=== PATIENT | female | born 2000 | race African-American/Black ===

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

== ENCOUNTER 2020-11-27 12:20 | Emergency (ER) | payer MEDICAID, SELFPAY ==
[2019-12-28 11:55] VITALS: BMI 30.9
[2020-11-27 12:21] VITALS: BP 163/106; PULSE 138; RESP 17; TEMP 37.4; O2SAT 100; BMI 22.1
--- NOTE | 2020-11-27 12:47 | ED.DCSUM_ITS ---
History of Present Illness Chief Complaint: Suicidal Informant: Patient Limited: - - Emotionally distraught Onset: Month(s) Context: Sudden Onset Conflict: Family Timing: Continuous, Waxes and wanes Current Severity: Severe Maximum Severity: Severe Worsened by: Situational factors Associated Symptoms: Depressed, Change in Eating, Change in sleeping, Decreased Interest, Guilt, Decreased Concentration, Suicidal Thoughts, Easily distracted. Negative for: Grandiosity, Flight of Ideas, Pressured Speech, Agitated, Paranoia, Visual Hallucinations, Auditory Hallucinations Specific plan (suicidal thought): None Narrative: Patient is a 20-year-old female who presents because of depression, anxiety and suicidal thoughts.In the past for depression. Most recent was 2016. She overdosed at that time. Has been hospitalized 3 times as a child. She presently lives with her sister and brother. She is not with anyone. She has no children. Patient became depressed after the of her child. She reports she was sleeping with the child the child stopped breathing while asleep. This occurred in March. Patient reports significant weight loss. She states she cannot quantitate the amount of weight. She has gone from wearing large clothing to extra small. She denies any constitutional symptoms. She denies headache, visual, ocular auditory symptoms. She denies cardiac respiratory symptoms. She denies GI or symptoms. She denies neurologic symptoms. Prior similar symptoms: Yes Recent Illness/Hospitalization: No - Past Medical History (1) Depression with anxiety Status: Acute Past Medical History - Allergies and Home Meds Allergies/Adverse Reactions: Allergies No Known Allergies Allergy (Verified 11/27/20 12:24) Primary Care Physician: Care Physician,No Primary [Primary Care Provider] - Prior records reviewed: Yes Surgical History: noncontributory Lives: With Family Smoking Status: Current every day smoker Alcohol: None Drugs: None Review of Systems General: Reports: Malaise, Weight loss. Denies: Chills, Fever, Subjective, Sweats Eyes: Denies: Visual changes - bilaterally ENT: Denies: Rhinorrhea, Sore throat Cardiovascular: Denies: Chest pain, Palpitations Respiratory: Denies: Dyspnea, Cough, Dyspnea on exertion Gastrointestinal: Denies: Abdominal pain, Nausea, Vomiting, Diarrhea, Melena, Hematochezia Genitourinary: Denies: Dysuria, Hematuria, Frequency Musculoskeletal: Denies: Myalgias, Arthralgias, Neck pain, Back pain, Extremity Pain Skin: Denies: Rash, Wounds Neurological: Denies: Headache, Weakness, Numbness Psych: Reports: Depression, Anxiety, Suicidal thoughts. Denies: Suicidal ideations Hematologic: Denies: Easy bruising, Easy bleeding Physical Exam Vital Signs/Narrative: Vital Signs Temp Pulse Resp BP Pulse Ox 11/27/20 12:21 99.3 F H 138 H 17 163/106 H 100 Inital Vital Signs reviewed: Yes General: Well nourished, Well developed Head: Normocephalic, Atraumatic Eyes: Perrl, EOMI. Negative for: Pale conjunctiva, Scleral icterus ENT: Moist mucous membranes, No rhinorrhea Neck: Supple, Nontender Cardiovascular: Regular rate, Regular rhythm, No murmurs Respiratory: No distress, CTA bilaterally, Chest nontender Abdomen: Soft, Nontender, Nondistended, Normal bowel sounds Back: Nontender, Normal Inspection Extremities: Nontender, No Edema Skin: Normal color, No rash, No Trauma. Negative for: Cyanosis, Diaphoresis, Jaundice Neurological: Alert, Oriented x3, Cranial nerves II-XII grossly intact, Normal Strength, Normal Sensation Psych: Normal Speech Pattern, Logical sequential goal directed thoughts, Normal Appearance, Depressed, Labile, Poverty of Speech, Suicidal thoughts. Negative for: No suicidal or homicidal ideation, Normal Stable Appropriate Affect, Homicidal thoughts, Hallucinations, Delusions, Paranoid Ideation Diagnostic/Tx/Re-eval Restraints applied: No Patient is depressed and anxious. She does not have a specific plan. Case management was informed that it is my opinion that she could go home and I would be willing to initiate antidepressant medication if the counseling center would be able to see her within the next week or 2. The licensed nursing assistant for the crisis center is presently talking with her on the phone. Since patient feels anxious and her heart is racing will treat with Ativan. I received a call from the licensed nursing assistant regarding patient. Plan is discharged with safety plan. She has an appointment to see counselor December 03 and a prescription for Zoloft. ED Disposition - Plan for ED Patient: Disposition: Home or Assisted Living Diagnosis: Depression, major, in partial remission Instructions: ED Depression Prescriptions: Sertraline HCl [Zoloft] 25 mg PO QHS #30 tab Transmission Status: Pending to [facility] Referrals: Care Physician,No Primary [Primary Care Provider] - Counseling,Center [GROUP OF PHYSICIANS] - Keep Jada appointment Additional Instructions: The antidepressant you were prescribed takes 2 to 3 weeks until you may see an effect. Dose may need to be increased by your counselor. Keep your appointment for December 03.
[2020-11-27] MEDS: LORazepam 0.5 MG Tablet PO (12:56)
[2020-11-27 14:15] VITALS: PULSE 78; RESP 16; O2SAT 99
== END 2020-11-27 14:16 | disposition home or self-care (01) ==
PROVIDERS: Emergency Provider Emergency Medicine
DX: F32.4 Major depressive disorder, single episode, in partial remission (principal); F17.200 Nicotine dependence, unspecified, uncomplicated
CPT/HCPCS: 99284

== ENCOUNTER 2022-09-24 15:01 | Observation (INO) | payer MEDICAID, SELFPAY ==
[2022-09-24 15:02] VITALS: BP 115/80; PULSE 125; RESP 16; TEMP 36.2; O2SAT 99; BMI 23.3
--- NOTE | 2022-09-24 15:34 | EDS_ITS ---
HPI History of Present Illness Chief Complaint: Substance Abuse Informant: patient Onset/Context/Timing Onset: Yesterday Context: Gradual Onset Timing: Continuous Worsened by: Nothing Relieved by: Nothing Associated Symptoms Associated Symptoms: Positive for palpatations and no; Negative for vomiting*, diarrhea*, fever*, rash*, seizure, tremor, change in mental status, trauma, suicidal ideation or homicidal ideation Narrative Narrative: Patient presents requesting detox from alcohol. Patient states she also smokes marijuana daily. Patient states she was instructed by her earth science technical officer to come to the hospital for detox. Patient states she drinks 1 bottle of wine per day. Patient states she has been drinking for a few years. Patient states her last drink was yesterday. Patient states she has never been through detox in the past. Patient admits to occasional palpitations. Patient denies any nausea or vomiting. Patient denies any diarrhea. Patient denies any tremor or seizures. Patient denies any suicidal or homicidal ideations. Patient denies any chance of . PFSH PFS Medical History no medical history no medical history Allergy/AdvReac Type Severity Reaction Status Date / Time No Known Allergies Allergy Verified 09/24/22 15:05 Surgical History no surgical history no surgical history Social History (Updated 09/24/22 @ 15:[address] Roman Miranda, DO) Smoking Status: Current every day smoker tobacco type: e-cigarettes alcohol intake: current alcohol intake frequency: 3 or more drinks per day Alcohol type: wine substance use type: marijuana ROS ROS ED Constitutional Constitutional ED: Denies chills or fever(s) Eyes Eyes: Denies blurry vision or change in vision ENT ENT ED: Denies rhinorrhea or sore throat Cardiovascular Cardiovascular: Reports palpitations; Denies chest pain Respiratory/Chest Respiratory/Chest: Denies cough or dyspnea Gastrointestinal Gastrointestinal: Denies nausea or vomiting Genitourinary Genitourinary ED: Denies dysuria or hematuria Musculoskeletal Musculoskeletal: Denies back pain or neck pain Integumentary Denies abscess or rash Neurologic Neurologic: Denies headache(s) or weakness Allergic/Immunologic Allergic/Immunologic ED: Denies mouth swelling or urticaria EXAM Physical Exam Const Vital Signs: 09/24/22 15:02 Temperature 97.1 F L Temperature Source Temporal Pulse Rate 125 H Respiratory Rate 16 Blood Pressure 115/80 Blood Pressure Mean 91 Pulse Ox 99 Oxygen Delivery Method Room Air Positive well nourished and well developed General Appearance ED: well developed and NAD HEENT Reports moist mucous membranes Neck supple and no JVD Resp normal respiratory effort and clear to auscultation bilaterally Cardio regular rate and regular rhythm GI normal to inspection, nondistended, normoactive bowel sounds and non-tender Palpation: soft Extremity normal to inspection General Extremety ED: Negative for edema or tenderness General Extremity: Negative for edema Neuro oriented x3, CN's II-XII intact bilaterally and no sensory deficits noted Sensorium / Orientation: alert Motor Exam: strength 5/5 throughout Psych mental status grossly normal Skin no rashes or lesions noted MDM MDM MDM Narrative Medical decision making narrative: Basic labs were obtained. Case was discussed with the hospitalist. He will admit patient to his service. Patient understood and was agreeable with the plan. All questions were answered. Lab Data Attestation: I reviewed the patient's lab results. Labs: Laboratory Results - last 24 hr 09/24/22 09/24/22 16:00 16:00 WBC 5.9 RBC 4.08 L Hgb 12.8 Hct 37.8 MCV 92.6 MCH 31.4 MCHC 33.9 RDW Std Deviation 42.0 RDW Coeff of James 12.3 Plt Count 264 MPV 9.5 Immature Gran % (Auto) 0.000 Neut % (Auto) 54.4 Lymph % (Auto) 35.2 Snyder % (Auto) 7.6 Eos % (Auto) 2.0 Baso % (Auto) 0.8 Absolute Neuts (auto) 3.2 Absolute Lymphs (auto) 2.09 Nucleated RBC % 0 Sodium 140 Potassium 3.7 Chloride 104 Carbon Dioxide 30.0 Anion Gap 6 BUN 15 Creatinine 0.75 Estim Creat Clear Calc 101.60 Est GFR (MDRD) Af Amer 124 Est GFR (MDRD) Non-Af 102 BUN/Creatinine Ratio 20.0 Glucose 90 Calcium 8.6 Total Bilirubin 0.30 AST 12 L ALT 12 L Alkaline Phosphatase 27 L Total Protein 8.1 Albumin 3.5 Globulin 4.6 H Albumin/Globulin Ratio 0.8 L Discharge Plan Triage Chief Complaint: Substance Abuse ED Provider: Roman Miranda Dx/Rx/DC Orders Clinical Impression: Alcohol withdrawal, Substance abuse Primary Care Provider: Care Physician,No Primary Disposition Disposition: Acute Care [facility]
--- NOTE | 2022-09-24 15:58 | NURSING ---
DR BELTRAN FOR DR MUSE
--- NOTE | 2022-09-24 16:00 | CM.ED ---
ALDEN Note Referral Reason: [facility] Referral Source: Case Find SW met with patient to discuss the RAMP program. Patient reports they are detoxing from alcohol. Patient reports that she does not know the amount of alcohol she has been using but it's alot. Patient told triage that [facility] Patient reports that her booking police officer advised her to come to the ED for detox. Patient is not linked with outpatient AOD provider. Patient was advised that the RAMP program includes no outside food or visitors, no phone access and all personal items are secured. ALDEN called Treatment Navigator and updated her regarding patient?s admission to [facility]. Plan: JOLIE VU
--- NOTE | 2022-09-24 16:07 | NURSING ---
MED SURG BORISS ALCOHOL WITHDRAWAL, SUBSTANCE ABUSE
[2022-09-24 16:18] LABS: Absolute Lymphocyte Count 2.09 X10^3/uL (0.83-4.51); Absolute Neutrophil Count 3.2 X10^3/uL (2.0-7.7); Basophil# 0.05 X10^3/uL; Basophil% 0.8 % (0-1); Eosinophil# 0.12 X10^3/uL; Hematocrit 37.8 % (37-47); Hemoglobin 12.8 g/dL (12.0-15.0); Lymphocyte # 2.09 X10^3/ul (0.83-4.51); Lymphocyte % 35.2 % (19-41); Mean Corp Hgb Conc 33.9 g/dL (32-36); Mean Corpuscular Hgb 31.4 pg (27.0-32.0); Mean Corpuscular Volume 92.6 fL (81-99); Mean Platelet Vol. 9.5 fl (6.2-12.0); Monocyte# 0.45 X10^3/uL; Monocyte% 7.6 % (0-10); NRBC Flagged by Analyzer 0 % (0-5); Neutrophil # 3.23 X10^3/uL (2.7-7.7); Neutrophil % 54.4 % (47-70); Platelet Count 264 K/mm3 (150-450); RBC Distribution Width CV 12.3 % (11.6-14.6); Red Blood Count 4.08 M/mm3 (4.2-5.4); White Blood Count 5.9 K/mm3 (4.4-11.0)
[2022-09-24 16:26] LABS: ALB/GLOB Ratio 0.8 RATIO (0.9-2.4); AST(SGOT) 12 U/L (15-37); Alanine Aminotransfer ALT/SGPT 12 U/L (13-56); Albumin, Serum 3.5 g/dL (3.2-5.0); Alkaline Phosphatase 27 U/L (45-117); Anion Gap 6 (5-15); BUN 15 mg/dL (7-18); Calcium,Total 8.6 mg/dL (8.5-10.1); Chloride 104 mmol/L (98-107); Creatinine, Serum 0.75 mg/dL (0.55-1.02); EST Glomerular Filtration Rate 102 mL/min (>60); Est Glom Filt Rate - Afr Amer 124 mL/min (>60); Globulin 4.6 g/dL (2.2-4.2); Glucose 90 mg/dL (74-106); Potassium 3.7 mmol/L (3.5-5.1); Protein, Total 8.1 g/dL (6.4-8.2); Sodium Level 140 mmol/L (136-145)
[2022-09-24 16:41] LABS: Internal QC Validated? YES +Cl - CLEAR BKGD; Pregnancy, Serum, hCG Quali. NEGATIVE Negative
[2022-09-24 16:42] LABS: Alcohol, Blood (Medical)-Serum < 3.0 mg/dL
[2022-09-24 16:43] VITALS: BP 120/76; PULSE 99; RESP 16; TEMP 36.2; O2SAT 99
[2022-09-24 17:28] VITALS: BMI 22.8
--- NOTE | 2022-09-24 17:46 | PCM.HP.STD ---
HPI - General General Date of Admission: 09/24/22 HPI Narrative FAMILIA NGUYỄN, is a 22 F who presents to the hospital requesting detox from alcohol at the behest of her port patrol officer. She drinks about a bottle of wine every night. She last drank heavily yesterday, though she did have a chris today. Alcohol level is normal and her serum test is negative. She would like to proceed with detox. She has never gone through detox before. [facility] Medical History (Updated 09/24/22 @ 17:35 by Dee Jenkins) Anxiety Depression PTSD (post-traumatic stress disorder) Medical History no medical history Allergy/AdvReac Type Severity Reaction Status Date / Time No Known Allergies Allergy Verified 09/24/22 15:05 Family History no significant family his no significant family history Surgical History no surgical history no surgical history Social History Smoking Status: Current every day smoker tobacco type: e-cigarettes alcohol intake: current alcohol intake frequency: 3 or more drinks per day Alcohol type: wine substance use type: marijuana ROS Constitutional Constitutional: Denies chills, fatigue, fever(s) or malaise Eyes Eyes: Denies blurry vision ENT HEENT: Denies headache(s) or nasal discharge Cardiovascular Cardiovascular: Denies chest pain, dyspnea on exertion or syncope Respiratory/Chest Respiratory/Chest: Denies cough, shortness of breath at rest or shortness of breath with exertion Gastrointestinal Gastrointestinal: Denies constipation, diarrhea, nausea or vomiting Genitourinary Genitourinary: Denies dysuria Neurologic Neurologic: Denies focal weakness, numbness or tremor(s) Psychiatric Psychiatric: Denies anxiety or depression Vital Signs Vital Signs Vital Signs: 09/24/22 15:02 09/24/22 16:43 Temperature 97.1 F L 97.1 F L Temperature Source Temporal Temporal Pulse Rate 125 H 99 Respiratory Rate 16 16 Blood Pressure 115/80 120/76 Blood Pressure Mean 91 90 Pulse Ox 99 99 Oxygen Delivery Method Room Air Room Air Weight Weight: 132 lb 11.492 oz Body Mass Index (BMI) 22.8 Physical Exam Narrative General: Alert, Oriented x3, Cooperative, tearful HEENT: Atraumatic, PERRLA, EOMI, Normocephalic Oral: Moist Mucosa Neck: Supple, No JVD Lungs: Clear to auscultation, Normal air movement, No rhonchi, No wheeze, No rales Cardiovascular: Regular rate, Regular Rhythm, Normal S1, Normal S2, No murmurs Abdomen: Soft, Non Tender, Non-Distended, No Hepato-splenomegaly Extremities: No edema, Capillary Refill Less than 3 Seconds Skin: No rashes, No breakdown Musculoskeletal: No Tenderness to Palpation of Joints or Extremities Neurological: Cranial nerves II-XII grossly intact, Motor Exam 5/5 strength throughout, Sensory exam intact to light touch and pain Psych/Mental Status: Anxious, Appropriate Results Lab / Micro Data Result Diagrams: 09/24/22 16:00 09/24/22 16:00 Labs: Laboratory Results - last 24 hr 09/24/22 16:00: WBC 5.9, RBC 4.08 L, Hgb 12.8, Hct 37.8, MCV 92.6, MCH 31.4, MCHC 33.9, RDW Std Deviation 42.0, RDW Coeff of James 12.3, Plt Count 264, MPV 9.5, Immature Gran % (Auto) 0.000, Neut % (Auto) 54.4, Lymph % (Auto) 35.2, [place] % (Auto) 7.6, Eos % (Auto) 2.0, Baso % (Auto) 0.8, Absolute Neuts (auto) 3.2, Absolute Lymphs (auto) 2.09, Nucleated RBC % 0 09/24/22 16:00: Sodium 140, Potassium 3.7, Chloride 104, Carbon Dioxide 30.0, Anion Gap 6, BUN 15, Creatinine 0.75, Estim Creat Clear Calc 101.60, Est GFR (MDRD) Af Amer 124, Est GFR (MDRD) Non-Af 102, BUN/Creatinine Ratio 20.0, Glucose 90, Calcium 8.6, Total Bilirubin 0.30, AST 12 L, ALT 12 L, Alkaline Phosphatase 27 L, Total Protein 8.1, Albumin 3.5, Globulin 4.6 H, Albumin/Globulin Ratio 0.8 L 09/24/22 16:00: Ethyl Alcohol < 3.0 09/24/22 16:00: Serum , Qual NEGATIVE Assessment & Plan Assessment/Plan (1) Alcohol withdrawal: (2) Depression with anxiety: PLAN: Plan 1. Alcohol withdrawal/anxiety/depression ? She is to be on medications including Prozac and BuSpar however she has not taken anything for a year ? She drinks about a bottle of wine every day ? Continue with the alcohol withdrawal protocol and have her follow-up with 180 to establish outpatient management. ? She vapes and occasionally smokes cigarettes but does not want a nicotine patch DVT: Ambulation Charges/Coding Visit Charges Inpatient E&M: 86144 Init Hosp L2
[2022-09-24 17:47] VITALS: BP 110/67; PULSE 81; RESP 16; TEMP 37.2; O2SAT 100
--- NOTE | 2022-09-24 18:09 | NURSING ---
Emergency documentation in effect 1800 09/24.
[2022-09-24] MEDS: Phenobarbital 32.4 MG Tablet 97.2 MG PO ×2 (18:15→22:53)
[2022-09-24 22:44] VITALS: BP 99/65; BP 99/66; PULSE 77; RESP 18; TEMP 37; O2SAT 98
[2022-09-25 02:50] VITALS: BP 109/67; PULSE 65; RESP 18; TEMP 36.7; O2SAT 94
[2022-09-25] MEDS: Phenobarbital 32.4 MG Tablet 97.2 MG PO ×3 (02:52→11:27)
[2022-09-25 04:06] LABS: Amphetamine Urine VISTA NEGATIVE (<1000 ng/mL); Barbiturate Urine VISTA POSITIVE (< 200 ng/mL); Benzodiazepine Urine VISTA NEGATIVE (< 200 ng/mL); Cocaine Urine VISTA NEGATIVE (< 300 ng/mL); Ecstacy Urine VISTA NEGATIVE (< 500 ng/mL); Methadone Urine VISTA NEGATIVE (< 300 ng/mL); PCP Urine VISTA NEGATIVE (< 25 ng/mL); THC Urine VISTA POSITIVE (< 50 ng/mL); Vista UDS pH Range 5
[2022-09-25 10:00] VITALS: BP 111/84; PULSE 71; RESP 16; TEMP 36.8; O2SAT 98
[2022-09-25] MEDS: Folic Acid 1 MG Tablet PO (11:27)
[2022-09-25] MEDS: Thiamine Hydrochloride 100 MG Tablet PO (11:28)
[2022-09-25 14:00] VITALS: BP 104/58; PULSE 84; RESP 16; TEMP 37.1
[2022-09-25] MEDS: Phenobarbital 32.4 MG Tablet PO ×2 (15:05→22:33)
[2022-09-25] MEDS: hydrOXYzine PAM 25 MG Capsule 50 MG PO (15:05)
--- NOTE | 2022-09-25 15:55 | CHAPLAIN ---
Type of Pastoral Visit _x__ Initial Visit ___ Follow-up Visit ___ On-call Visit ___ General Patient Visit ___ Spiritual Assessment ___ Family Conference ___ Bereavement ___ Rapid Response ___ Code Blue ___ Other (describe below) Pastoral Care Referral From _x__ Patient ___ Family ___ Nurse ___ Physician ___ Pulp Screen Operator ___ Tour Counselor ___ Other (describe below) Sacrament/Intervention ___ Active listening ___ Anointing ___ Rastafari ___ Bereavement ___ Communion ___ Yasmin exploration ___ ___ Life review _x__ Prayer ___ Reconciliation ___ Sacrament of Sick ___ Supportive presence ___ Wedding ___ Other (describe below) Pastoral Comments patient awakens to the call of her name but does not engage in conversation; sat at bedside to introduce self and role of support; pt acknowledges this booster pump oiler and states a prayer would be fine; pt does give permission for follow up visit tomorrow; pt falls asleep after prayer is given
[2022-09-25 18:00] VITALS: BP 105/71; PULSE 80; RESP 18; TEMP 37.3; O2SAT 98
--- NOTE | 2022-09-25 19:05 | PCM.PN.HOSP ---
Subjective Subjective Patient was seen and examined today, she complains of feeling sleepy on the phenobarbital, patient does not have any complaints of tremor or anxiety. Patient asked me if she would be ready to be discharged tomorrow-I told her usually when you come in the hospital for detox you are in a minimum of 3 days. I told her I would decrease her phenobarbital dose and reevaluate her tomorrow. She states that addiction medical social consultant has not seen her yet. Patient tells me she drinks either a bottle of wine a day or 1/5 of hard liquor. Objective Data Objective Data Vital Signs: Vital Signs Temp Pulse Resp BP Pulse Ox O2 Del Method 99.1 F 80 18 105/71 98 Room Air 09/25/22 18:00 09/25/22 18:00 09/25/22 18:00 09/25/22 18:00 09/25/22 18:00 09/25/22 18:00 Oxygen Delivery Method Room Air Weight: 60.2 kg Body Mass Index (BMI) 22.8 Intake & Output: Intake and Output for Last 24 Hours 09/23/22 09/24/22 09/25/22 23:59 23:59 23:59 Intake Total 1050 / 1050 Balance 1050 / 1050 Lab / Micro Data Result Diagrams: 09/24/22 16:00 09/24/22 16:00 Labs: Laboratory Results - last 24 hr 09/24/22 03:00: Urine Opiates Screen NEGATIVE, Urine Methadone Screen NEGATIVE, Ur Barbiturates Screen POSITIVE H, Ur Phencyclidine Scrn NEGATIVE, Ur Amphetamines Screen NEGATIVE, MDMA (Ecstasy) Screen NEGATIVE, U Benzodiazepines Scrn NEGATIVE, Urine Cocaine Screen NEGATIVE, U Cannabinoids Screen POSITIVE H, Ur Drug Screen Comment Physical Exam Const alert, oriented x3, no apparent distress and healthy appearing General Appearance: cooperative, well kempt and well developed Orientation / Consciousness: awake, oriented to person, oriented to place and oriented to time HEENT normocephalic and moist oral mucous membranes Eyes PERRL, EOMs intact bilaterally and conjunctivae normal Neck supple, no JVD, thyroid normal and no carotid bruits General: trachea midline Resp normal respiratory effort and clear to auscultation bilaterally Auscultation: Negative for rales, rhonchi or wheezes Cardio regular rate, regular rhythm, no murmurs, no rub and no gallops GI normal to inspection, nondistended, normoactive bowel sounds, soft to palpation, non-tender and non-distended Extremity no clubbing, cyanosis or edema Skin no rashes or lesions noted General Skin Exam: no breakdown Neuro oriented x3, CN's II-XII intact bilaterally, no focal motor deficits and no sensory deficits noted Sensorium / Orientation: awake and alert Speech: speech normal Psych affect normal Assessment & Plan Assessment/Plan (1) Alcohol withdrawal: PLAN: Plan 1. Acute alcohol withdrawal-patiently is minimally symptomatic at this time, I have elected to decrease her phenobarbital due to sleepiness with the medication. #2 chronic alcoholism-patient will need follow-up after discharge from the hospital #3 chronic depression and anxiety-patient is on no medications at the present time. Charges/Coding Visit Charges Inpatient E&M: 85805 Subs Hosp L2
[2022-09-25 22:32] VITALS: BP 107/74; PULSE 63; RESP 18; TEMP 36.6; O2SAT 100
[2022-09-26 04:28] VITALS: BP 93/67; PULSE 65; RESP 18; TEMP 36.5; O2SAT 98
[2022-09-26] MEDS: Phenobarbital 32.4 MG Tablet PO (05:31)
[2022-09-26 09:40] VITALS: BP 123/75; PULSE 78; RESP 16; TEMP 36.8; O2SAT 100
--- NOTE | 2022-09-26 10:41 | DCINST_ITS ---
Discharge Instructions Diet Discharge Diet: No restrictions Activity Discharge Activity: Return to Normal Activity Weight Bearing Status: Full weight bearing Follow Up Care Test Results: Test results from this visit will be discussed in further detail at your follow- up appointment, if applicable. Discharge Plan Admission Admit Date/Time: 09/24/22 17:44 Primary Reason for Your Visit: alcohol withdrawal Attending Provider: Navdeep Marcelo Primary Care Provider: Care Physician,No Primary Consulting Providers: Ted Nettles Discharge Orders/Prescriptions Prescriptions: New hydroxyzine pamoate 25 mg Capsule 25 - 50 mg PO Q6H PRN (Reason: Anxiety) Qty: 40 0RF Referrals / Follow Up: Care Physician,No Primary [Primary Care Provider] - Disposition Disposition (needs filled in before D/C Order can be placed): Home, Self Care
--- NOTE | 2022-09-26 10:49 | ADDICTION ---
This typewriter assembler met with PT to conduct ASAM, MSE, AUDIT assessments and to plan for d/c. PT A+Ox4 and participated actively. All assessments completed and placed in PT's chart. PT plans to f/u with [facility] for follow-up treatment services. PT did not indicate a need for transportation post d/c from [facility].
--- NOTE | 2022-09-26 10:52 | PCM.DC.SUM ---
Providers Date of Admission: 09/24/22 Date of Discharge: 09/26/22 Primary Care Physician: No Primary Care Phys Reason For Visit: ETOH DETOX Diagnosis Discharge Diagnosis (1) Alcohol withdrawal: Status: Acute Code(s): F10.939 - Alcohol use, unspecified with withdrawal, unspecified Plan 1. Acute alcohol withdrawal-patiently is minimally symptomatic at this time, I have elected to decrease her phenobarbital due to sleepiness with the medication. #2 chronic alcoholism-patient will need follow-up after discharge from the hospital #3 chronic depression and anxiety-patient is on no medications at the present time. Medications at Discharge Home Medications hydroxyzine pamoate 25 mg capsule 25 - 50 mg PO Q6H PRN Anxiety #40 caps 09/26/22 Hospital Course Operations None Procedures None Summary of Care Provided Minutes Spent on Discharge: 30 Hospital Course: This 22-year-old black female was seen in the emergency room at [facility] requesting services for detox from alcohol, she was instructed to come in by her forestry technical officer. Patient was admitted to PCU, orders were entered using the alcohol detox order set, she was seen by addiction school social worker. Patient had no untoward events during her hospital stay and did not have any episode of DT's. On 09/26/2022, patient was seen and examined: On examination she appeared in good health and spirits, she does not appear to be in any distress. Vital signs as documented. Skin warm and dry and without overt rashes. Neck without JVD, thyroid appears normal, trachea is midline, neck is supple. Lungs clear, normal air movement was noted. Heart exam notable for regular rhythm, normal sounds and absence of murmurs, rubs or gallops. Abdomen unremarkable and without evidence of organomegaly, masses, or abdominal aortic enlargement, bowel sounds are present in all 4 quadrants, no abdominal tenderness was noted. Extremities nonedematous, no cyanosis was noted, no clubbing was noted. Neuro: Cranial nerves II through XII are grossly intact, no focal motor deficits were noted, sensation to light touch and pinprick is intact, motor exam 5/5 throughout. Psych: Patient is alert and oriented x3, she does not appear anxious or depressed, she does not appear agitated. Patient appears stable for discharge on 09/26/2022, she was instructed to follow-up with outpatient detox services. Weight / BMI Weight Weight: 60.2 kg Body Mass Index (BMI) 22.8 ABG / Lab / Microbiology Data Result Diagrams: 09/24/22 16:00 09/24/22 16:00 D/C Instructions Discharge Diet: No restrictions Weight Bearing Status: Full weight bearing Meaningful Use Info Meaningful Use Diagnoses (Choose all that apply): None applicable Discharge Plan Admission Admit Date/Time: 09/24/22 17:44 Primary Reason for Your Visit: alcohol withdrawal Attending Provider: Navdeep Marcelo Primary Care Provider: Care Physician,Lindsey Primary Consulting Providers: Ted Nettles Discharge Orders/Prescriptions Prescriptions: New hydroxyzine pamoate 25 mg Capsule 25 - 50 mg PO Q6H PRN (Reason: Anxiety) Qty: 40 0RF Referrals / Follow Up: Care Physician,No Primary [Primary Care Provider] - Disposition Disposition (needs filled in before D/C Order can be placed): Home, Self Care Charges/Coding Visit Charges Inpatient E&M: 62918 Disch Hosp
== END 2022-09-26 11:30 | disposition home or self-care (01) ==
LOC: ED 15:42 → PCU 16:38
PROVIDERS: Admitting Provider Family Medicine; Emergency Provider Emergency Medicine; Visit Provider Internal Medicine
DX: F10.239 Alcohol dependence with withdrawal, unspecified (principal); F12.10 Cannabis abuse, uncomplicated; F17.290 Nicotine dependence, other tobacco product, uncomplicated; F17.210 Nicotine dependence, cigarettes, uncomplicated
CPT/HCPCS: 80053; 80307; 82077; 84703; 85025; 99221; 99283; A4216; G0378

== ENCOUNTER 2023-06-26 09:23 | Outpatient (CLI) | payer SELFPAY ==
[2023-06-26 09:37] VITALS: PULSE 90; O2SAT 99
[2023-06-26 09:42] VITALS: BP 137/61; PULSE 86; TEMP 37.3
[2023-06-26 09:44] VITALS: BMI 22.3
--- NOTE | 2023-07-22 02:08 | OB.TRI.NOTE ---
HPI - General HPI Narrative FAMILIA NGUYỄN, is a 23 F who presents with missed menses and possible . Maternal Data Information Gestational age: unknown as patient with no PNC PFSH PFSH Medical History (Updated 07/22/23 @ 02:[address] Cale Ovalles MD) Anxiety Depression PTSD (post-traumatic stress disorder) Substance abuse Allergy/AdvReac Type Severity Reaction Status Date / Time No Known Allergies Allergy Verified 06/26/23 09:43 Social History Smoking Status: Current every day smoker tobacco type: e-cigarettes alcohol intake: current alcohol intake frequency: 3 or more drinks per day Alcohol type: wine substance use type: marijuana History Elective abortions Hx Para 0 Spontaneous abortions Hx # Term Pregnancies Ectopic pregnancies Hx # Pregnancies Multiple births # of living children Assessment & Plan (1) Missed menses: PLAN: Plan Patient sent to follow up in office to evaluate for
== END 2023-06-26 10:10 | disposition home or self-care (01) ==
LOC: WPOUT 09:24 → WP 09:25
PROVIDERS: Referring Provider Obstetrics & Gynecology; Visit Provider Obstetrics & Gynecology
DX: N92.6 Irregular menstruation, unspecified (principal)
CPT/HCPCS: 99221; G0378